=== PATIENT | female | born 1980 | race Two or more races ===

== ENCOUNTER 2023-09-25 22:14 | Emergency (ER) | payer OTHER ==
[~2023-09-25] VITALS: Ht 157.5 cm; Wt 54.3 kg
[2023-09-25 22:29] VITALS: BP 130/54; PULSE 87; RESP 16; O2SAT 99
== END 2023-09-26 01:17 | disposition left against medical advice (07) ==
LOC: ER 22:14
DX: R22.1 Localized swelling, mass and lump, neck (principal); R13.10 Dysphagia, unspecified; Z53.21 Procedure and treatment not carried out due to patient leaving prior to being seen by health care provider; Z98.890 Other specified postprocedural states

== ENCOUNTER 2023-11-10 17:58 | Emergency (ER) | payer OTHER | END 2023-11-10 18:35 | disposition left against medical advice (07) | LOC: ER 17:58 | DX: R06.02 Shortness of breath (principal); Z53.21 Procedure and treatment not carried out due to patient leaving prior to being seen by health care provider ==